=== PATIENT | male | born 1970 | race Caucasian/White ===

== ENCOUNTER 2022-08-25 19:28 | Emergency (ER) | payer SELFPAY ==
[2022-08-25] MEDS ORDERED: traMADol 50 MG Tab PO ONE (19:29)
[2022-08-25 20:59] VITALS: BP 157/106; PULSE 98
[2022-08-25] MEDS ORDERED: Amoxicillin/Clavulanate K 875-125 MG Tab PO ONE (21:02)
[2022-08-25] MEDS ORDERED: Take Home: Lidocaine 2% Viscous Solution 15 ML UD, 2 Cup Pack PO ONE (21:07)
[2022-08-25] MEDS ORDERED: traMADol 50 MG Tab ONE (21:15)
== END 2022-08-25 21:38 | disposition home or self-care (01) ==
LOC: DL.ED 19:28
DX: S02.5XXB Fracture of tooth (traumatic), initial encounter for open fracture (principal); K02.9 Dental caries, unspecified; Z72.0 Tobacco use
CPT/HCPCS: 99283; A9270

== ENCOUNTER 2022-10-15 04:11 | Emergency (ER) | payer SELFPAY ==
[2022-10-15] MEDS ORDERED: Amoxicillin/Clavulanate K 875-125 MG Tab PO ONE (05:50)
[2022-10-15 06:12] VITALS: BP 123/67; PULSE 88
== END 2022-10-15 06:09 | disposition home or self-care (01) ==
LOC: DL.ED 04:11
DX: K02.9 Dental caries, unspecified (principal); F17.210 Nicotine dependence, cigarettes, uncomplicated
CPT/HCPCS: 99282; A9270